=== PATIENT | male | born 1950 | race African-American/Black ===

== ENCOUNTER → 2017-01-27 | Outpatient (CLI) | payer BC | END | disposition home or self-care (01) | LOC: RADPV 09:03 | PROVIDERS: ATTEND Family Medicine | DX: R22.0 Localized swelling, mass and lump, head (principal); S09.8XXD Other specified injuries of head, subsequent encounter; X58.XXXD Exposure to other specified factors, subsequent encounter | CPT/HCPCS: 76999 ==